=== PATIENT | female | born 1945 | race Hispanic/Latino ===

== ENCOUNTER 2016-06-06 09:49 | Outpatient (CLI) | payer MEDICARE ==
[2016-06-06 11:29] LABS: ALT (SGPT) 16 U/L (0-55); AST (SGOT) 16 U/L (5-34); Alkaline Phosphatase 85 U/L (40-150); Anion Gap 16 mmol/L (10-20); BUN (Urea Nitrogen) 17 mg/dL (9.8-20.1); Bilirubin, Total 0.4 mg/dL (0.2-1.2); Calc. Creatinine Clearance 0 mL/min (70-130); Calcium 9.4 mg/dL (7.8-10.44); Carbon Dioxide 23 mmol/L (23-31); Chloride 102 mmol/L (98-107); Estimated GFR-MDRD 55; LDL Cholesterol, Calculated 84 mg/dL; Protein, Total 7.5 g/dL (5.8-8.1)
[2016-06-06 12:15] LABS: #Basophils 0.1 thou/uL (0.0-0.2); #Eosinphils 0.1 thou/uL (0.0-0.7); #Lymphocytes 1.9 thou/uL (1.20-3.40); #Monocytes 0.5 thou/uL (0.11-0.59); #Neutrophils 5.5 thou/uL (1.40-6.50); %Basophils 1.1 % (0.0-1.0); %Eosinophils 1.8 % (0.0-10.0); %Monocytes 6.3 % (0.0-10.0); Hematocrit 31.6 % (36.0-47.0); Mean Platelet Volume 4.9 fL (7.4-10.4); Red Blood Cell (RBC) Count 3.67 mill/uL (4.20-5.40); White Blood Cell (WBC) Count 8.2 thou/uL (4.8-10.8)
[2016-06-06 12:34] LABS: Hemoglobin A1c 5.7 % (4.0-6.0)
== END 2016-06-06 09:50 | disposition home or self-care (01) ==
LOC: HPCALD 09:49
PROVIDERS: ATTEND Family Medicine
DX: E78.5 Hyperlipidemia, unspecified (principal); E11.9 Type 2 diabetes mellitus without complications; I10 Essential (primary) hypertension
CPT/HCPCS: 36415; 80053; 80061; 83036; 85025

== ENCOUNTER 2016-12-11 10:27 | Outpatient (CLI) | payer MEDICARE ==
[2016-12-11 10:51] LABS: #Basophils 0.1 thou/uL (0.0-0.2); #Eosinphils 0.2 thou/uL (0.0-0.7); #Lymphocytes 1.5 thou/uL (1.20-3.40); #Monocytes 0.6 thou/uL (0.11-0.59); #Neutrophils 6.6 thou/uL (1.40-6.50); %Basophils 1.2 % (0.0-1.0); %Eosinophils 1.7 % (0.0-10.0); %Monocytes 6.9 % (0.0-10.0); %Neutrophils 73.2 % (42.0-75.0); Hemoglobin 11.1 g/dL (12.0-16.0); Mean Corpuscular HGB CONC 35.2 g/dL (32.0-36.0); Mean Corpuscular Hemoglobin 30.6 pg (27.0-31.0); Mean Corpuscular Volume 86.9 fl (81.0-99.0); Mean Platelet Volume 4.9 fL (7.4-10.4); Platelet Count 291 thou/uL (130-400); RBC Distribution Width 11.1 % (11.5-14.5); Red Blood Cell (RBC) Count 3.62 mill/uL (4.20-5.40)
[2016-12-11 11:05] LABS: ALT (SGPT) 16 U/L (8-55); AST (SGOT) 14 U/L (5-34); Albumin 4.6 g/dL (3.4-4.8); Alkaline Phosphatase 78 U/L (40-150); Anion Gap 16 mmol/L (10-20); BUN (Urea Nitrogen) 20 mg/dL (9.8-20.1); Bilirubin, Total 0.4 mg/dL (0.2-1.2); Calc. Creatinine Clearance 0 mL/min (70-130); Calcium 9.7 mg/dL (7.8-10.44); Carbon Dioxide 24 mmol/L (23-31); Cardiac Risk 4.5 (Less than 4.5); Chloride 100 mmol/L (98-107); Cholesterol 161 mg/dl (< 200 Desired); Estimated GFR-MDRD 52; Globulin 3.1 g/dL (2.4-3.5); Glucose 128 mg/dL (83-110); HDL Cholesterol 36 mg/dL (>60 Neg Risk); LDL Cholesterol, Calculated 76 mg/dL; Potassium 4.5 mmol/L (3.5-5.1); Protein, Total 7.7 g/dL (6.0-8.3); Sodium 135 mmol/L (136-145); Triglycerides 244 mg/dL (Less than 150)
[2016-12-11 11:12] LABS: Hemoglobin A1c 5.7 % (4.0-6.0)
== END 2016-12-11 10:28 | disposition home or self-care (01) ==
LOC: HPCALD 10:27
PROVIDERS: ATTEND Family Medicine
DX: E78.5 Hyperlipidemia, unspecified (principal); E11.9 Type 2 diabetes mellitus without complications; I10 Essential (primary) hypertension
CPT/HCPCS: 36415; 80053; 80061; 83036; 85025

== ENCOUNTER 2017-11-25 16:43 | Emergency (ER) | payer MEDICARE ==
[2017-11-25] MEDS ORDERED: HYDROcodone/Acetaminophen 5/325 mg Tablet ONE (17:00)
[2017-11-25] MEDS ORDERED: Adacel (T-DAP) 0.5 ML VIAL ONE (17:00)
== END 2017-11-25 17:20 | disposition home or self-care (01) ==
LOC: BURERS 16:43
DX: S70.12XA Contusion of left thigh, initial encounter (principal); S50.812A Abrasion of left forearm, initial encounter; J45.909 Unspecified asthma, uncomplicated; E11.9 Type 2 diabetes mellitus without complications; Z79.84 Long term (current) use of oral hypoglycemic drugs; Z79.899 Other long term (current) drug therapy; Z79.82 Long term (current) use of aspirin; I10 Essential (primary) hypertension; F41.9 Anxiety disorder, unspecified; W22.8XXA Striking against or struck by other objects, initial encounter
CPT/HCPCS: 90471; 90715

== ENCOUNTER 2018-11-28 07:54 | Outpatient (CLI) | payer MEDICARE ==
--- NOTE | 2018-11-28 17:51 | CT ---
CT ABDOMEN AND PELVIS WITHOUT CONTRAST: 11/28/[address] of the abdomen and pelvis was performed for evaluation of left sided abdominal pain. Axial slices were acquired followed by coronal and sagittal reconstructions. The lung bases are clear. There is a small cyst or pneumatocele in the right lower lobe with no real concern. The liver is slightly generous in size but no space occupying lesions were seen within the limitation s of a noncontrast scan. The spleen, pancreas, and adrenal glands were unremarkable. A gallstone appe ars to be present in the neck of the gallbladder but there is no streaking around the gallbladder or wall thickening. The kidneys showed no sign of solid mass or hydronephrosis. There is a small calcifi cation in the lower pole of the right kidney. The major finding on the study is some mild wall thickening of the antrum of the stomach through prox imal jejunum. The finding is nonspecific but may represent gastroenteritis. The remainder of the smal l bowel and colon were unremarkable. There is a very large amount of stool in the rectal vault. There is no mechanical obstruction. CT of the pelvis shows no pelvic masses, fluid collections, or inflammatory changes. There is no evid ence of diverticulitis. The abdominal aorta is partially calcified but normal in caliber throughout. IMPRESSION: 1. Mild thickening of loops of proximal jejunum and to a lesser extent the antrum of the stomach . Gastroenteritis is a possibility. 2. Tiny nonobstructing calculus in the lower pole of the right kidney. 3. Borderline hepatic size. 4. Stone in the neck of the gallbladder. 5. Large amount of stool in the rectal vault. POS: HOME
== END 2018-11-28 07:55 | disposition home or self-care (01) ==
LOC: BURCT 07:54
PROVIDERS: ATTEND Family Medicine
DX: R10.9 Unspecified abdominal pain (principal); N20.0 Calculus of kidney; K80.20 Calculus of gallbladder without cholecystitis without obstruction
CPT/HCPCS: 74176